=== PATIENT | male | born 1975 | race Caucasian/White ===

== ENCOUNTER 2024-01-04 18:22 | Inpatient (IN) | payer MEDICARE, SELFPAY ==
--- NOTE | 2024-01-04 18:34 | ED.GENADULT ---
HPI - General Adult General Chief complaint: ETOH/Substance Use Stated complaint: ETOH, seizure in parking lot? Time Seen by Provider: 01/04/24 18:33 History of Present Illness ED Provider: Nataliia CARTER narrative: The patient is a 48-year-old male with a history of alcoholism. He also has a history of long-term gout. Apparently the patient was feeling quite depressed because of a recent alcohol relapse and heavy use recently. He says that he drove himself to the hospital from a motel in [place] because he was having suicidal thoughts. He apparently told the nurse that he had a plan to slit his throat with a knife. The patient says that he normally lives in [place], [place]. He says that he has 3 young children. He says he has been working doing [employer] work in the [place] area recently, commuting from [place]. The patient says that he has had alcohol withdrawal seizures in the past but not recently. He has been in detox a few times. Related Data Home Medications ?Medication ?Instructions ?Recorded ?Confirmed allopurinol 300 mg tablet 300 mg PO DAILY 01/04/24 01/04/24 amlodipine 5 mg tablet 5 mg PO DAILY 01/04/24 01/04/24 folic acid 1 mg tablet 1 mg PO DAILY 01/04/24 01/04/24 melatonin 5 mg tablet 1 mg PO DAILY 01/04/24 01/04/24 metoprolol succinate 50 mg 50 mg PO DAILY 01/04/24 01/04/24 tablet,extended release 24 hr nicotine (polacrilex) 2 mg gum 2 mg PO Q2H PRN nicotine cravings 01/04/24 01/04/24 nifedipine 60 mg tablet,extended 60 mg PO DAILY 01/04/24 01/04/24 release 24 hr sertraline 100 mg tablet 100 mg PO DAILY 01/04/24 01/04/24 thiamine HCl (vitamin B1) 100 mg 100 mg PO DAILY 01/04/24 01/04/24 tablet Allergies Allergy/AdvReac Type Severity Reaction Status Date / Time No Known Allergies Allergy Verified 01/04/24 18:43 Review of Systems Review of Systems: Yes all other systems are reviewed and are negative [facility] Social History Social History Alcohol intake: current Alcohol intake frequency: 3 or more drinks per day Alcohol type: hard liquor Smoked in Last 30 Days: No Use of substances other than those prescribed or required for medical reasons: No Advance Directives: No Advance Directives Information Provided: No Physical Exam ED Vital Signs: Vital Signs - 24 hr 01/04/24 18:38 01/04/24 19:58 01/04/24 22:23 Temperature 97.9 F 98.3 F 98.3 F Pulse Rate 106 H 87 90 Respiratory Rate 18 19 17 Blood Pressure 144/88 H 144/78 H 134/80 Pulse Oximetry 98 92 94 Oxygen Delivery Method Room Air Room Air Room Air 01/04/24 23:15 Temperature 98.7 F Pulse Rate 101 H Respiratory Rate 18 Blood Pressure 159/87 H Pulse Oximetry 94 Oxygen Delivery Method Room Air BMI result Body Mass Index 28.7 Const Other: The patient is awake and alert. He has mildly slurred speech consistent with alcohol intoxication. He does not seem in acute distress otherwise. HENMT Other: Face is symmetrical. Mucous membranes moist. Eyes Other: Pupils are round equal, conjunctivae clear Neck Other: Moving his neck easily Resp Effort & Inspection: normal respiratory effort Auscultation: clear to auscultation bilaterally Cardio Rate: regular rate and tachycardic Rhythm: regular rhythm Heart sounds: S1 normal heart sound present and S2 normal heart sound present GI Other: Abdomen is soft and nontender Skin Other: Skin is dry and unremarkable Neuro Other: The patient is awake and alert. He is reasonably well oriented. He has mild slurred speech consistent with alcohol intoxication. No facial asymmetry. Eye movements are intact. Symmetrical tone. No focal findings. Extrem Other: The patient has several nodules on his hands and feet consistent with chronic manifestations of gout Medications Administered Generic Name Dose Route Start Last Admin Trade Name Freq PRN Reason Stop Dose Admin Phenobarbital Sodium 219 mg 01/04/24 22:30 01/04/24 22:21 Phenobarbital Sodium 130 Mg/Ml Vial Im Q3hx2 IM 01/05/24 01:31 219 mg Q3H ALBINA Administration Protocol Discontinued Medications Generic Name Dose Route Start Last Admin Trade Name Freq PRN Reason Stop Dose Admin Sodium Chloride 1,000 mls @ 999 mls/hr 01/04/24 19:00 01/04/24 20:52 Ns IV 01/04/24 20:00 Infused .Q1H1M ALBINA Infusion Phenobarbital 240 mg 01/04/24 23:51 01/04/24 23:58 Phenobarbital 30 Mg Tablet PO 01/04/24 23:52 240 mg ONCE ONE Administration Phenobarbital Sodium 292 mg 01/04/24 19:30 01/04/24 19:51 Phenobarbital Sodium 130 Mg/Ml Im Once IM 01/04/24 19:31 292 mg ONCE ONE Administration Protocol Medical Decision Making Medical Decision Making [facility] Narrative: The patient is a 48-year-old male who was an alcoholic. He has relapsed on alcohol and is depressed about having relapsed. He presents with what seems to be alcohol intoxication and suicidal thoughts. The patient's ethanol level was 385. The patient was given IV fluids. The patient was given 2 doses of IM phenobarbital. He seems stable. He will be moved into the Psychiatric pod awaiting a care team consult. The patient is medically clear for evaluation and disposition by the care team although he may require additional medications if he develops any significant alcohol withdrawal symptoms. Lab Data 01/04/24 19:49 01/04/24 19:49 Labs: Lab Results 01/04/24 01/04/24 Range/Units 19:49 20:08 WBC 7.7 (4.8-10.8) X10*3/uL RBC 4.94 (4.60-5.80) X10*6/uL Hgb 15.1 (14.0-18.0) g/dl Hct 43.6 (42.0-52.0) % MCV 88.3 (80.0-98.0) fL MCH 30.6 (27.0-33.0) pg MCHC 34.6 (31.0-36.0) g/dl RDW 13.8 (11.0-16.0) % Plt Count 383 (160-400) X10*3/uL MPV 9.5 (9.4-12.4) fL Immature Gran % (Auto) 0.4 (0.0-0.4) % Neut % (Auto) 72.4 (45-73) % Lymph % (Auto) 22.5 (20-40) % [place] % (Auto) 4.3 (2-11) % Eos % (Auto) 0.0 (0-4) % Baso % (Auto) 0.4 (0-2) % Lymph # (Auto) 1.7 (1.2-4.9) X10*3/uL [place] # (Auto) 0.3 (0.1-1.2) X10*3/uL Eos # (Auto) 0.0 (0.0-0.4) X10*3/uL Baso # (Auto) 0.0 (0.0-0.2) X10*3/uL Abs Immat Gran (auto) 0.03 (0.00-0.03) X10*3/uL Absolute Neuts (auto) 5.6 (2.0-8.3) x10*3/uL Absolute Nucleated RBC 0.000 (0.0-0.012) X10*3/uL Nucleated RBC % (auto) 0.0 (0.0-0.2) /100WBC PT 12.6 (11.1-13.3) SEC INR 1.0 (0.9-1.1) Sodium 146 H (135-145) mmol/L Potassium 4.0 (3.3-5.1) mmol/L Chloride 106 (96-108) mmol/L Carbon Dioxide 24 (22-29) mmol/L Anion Gap 20 (12-20) BUN 20 H (9-16) mg/dL Creatinine 1.27 (0.5-1.4) mg/dL Estim Creat Clear Calc 78.8 Estimated GFR > 60 Random Glucose 119 H (60-115) mg/dL Calcium 9.3 (8.4-10.2) mg/dL Magnesium 2.0 (1.6-2.6) mg/dL Total Bilirubin 0.5 (0.0-1.0) mg/dL Direct Bilirubin 0.2 (0.0-0.5) mg/dL AST 31 (5-37) U/L ALT 21 (0-40) U/L Alkaline Phosphatase 150 H (39-117) U/L Total Protein 7.8 (6.5-8.0) g/dL Albumin 4.7 (3.5-5.0) g/dL Urine Color Yellow Urine Appearance Clear Urine pH 6.5 (5.0-9.0) Ur Specific [place] 1.015 (1.005-1.025) Urine Protein 30 (1+) H (Neg-Trace) mg/dL Urine Glucose (UA) Negative (Negative) mg/dL Urine Ketones Negative (Negative) mg/dL Urine Blood Negative (Negative) Urine Nitrite Negative (Negative) Ur Leukocyte Esterase Negative (Negative) Urine RBC 0-2 (0-2) /HPF Urine WBC 0-5 (0-5) /HPF Ur Squamous Epith Cells 0-2 (0-2) /HPF Urine Bacteria None Seen (None Seen) Hyaline Casts 0-2 (0-2) /LPF Urine Opiates Screen Not Detected (Not Detect) Ur Buprenorphine Scrn Not Detected (Not Detect) ng/mL Ur Oxycodone Screen Not Detected (Not Detect) ng/mL Urine Methadone Screen Not Detected (Not Detect) ng/mL Urine Fentanyl Screen Not Detected (Not Detect) Ur Barbiturates Screen POSITIVE H (Not Detect) Ur Phencyclidine Scrn Not Detected (Not Detect) Ur Amphetamines Screen Not Detected (Not Detect) U Benzodiazepines Scrn Not Detected (Not Detect) Urine Cocaine Screen Not Detected (Not Detect) U Marijuana (THC) Screen Not Detected (Not Detect) Ethyl Alcohol 385 H* mg/dL Discharge Plan Discharge Clinical Impression: Depression with suicidal ideation, Alcoholic intoxication, Alcoholism Patient Disposition: Still a Patient Prescriptions: No Action nicotine (polacrilex) 2 mg gum 2 mg PO Q2H PRN (Reason: nicotine cravings) metoprolol succinate 50 mg tablet extended release 24 hr 50 mg PO DAILY sertraline 100 mg tablet 100 mg PO DAILY thiamine HCl (vitamin B1) 100 mg tablet 100 mg PO DAILY amlodipine 5 mg tablet 5 mg PO DAILY nifedipine 60 mg tablet extended release 24hr 60 mg PO DAILY folic acid 1 mg tablet 1 mg PO DAILY allopurinol 300 mg tablet 300 mg PO DAILY melatonin 5 mg tablet 1 mg PO DAILY Print Language: Panamanian
[2024-01-04 18:38] VITALS: BP 144/88; PULSE 106; RESP 18; TEMP 36.6; O2SAT 98; BMI 28.7
--- NOTE | 2024-01-04 18:40 | MHC.EDTECH ---
Patient was changed over due to intoxication of alcohol with nurse and security. Patients belongings are in [address].
--- NOTE | 2024-01-04 18:43 | PC.NURSE ---
patient presentred with hospital security after being found in D lot by [employer] after a call that someone was in their car having a seizure. patient found to have open bottle of smirnoff vodka with him. patient states hes been sober x3mo with the help of AA and sober living. patient states he is not interested right now in detox services because things arent that bad . patient endorses driving to the parking lot after drinking, but denies having a seizure. patient states he was sitting in his work van knowing he couldnt go back to sober living home, or home to his and kids and stated that he was thinking of killing himself and cutting his throat with the knife he has in his van. patient is calm and cooperative, pleasant., was changed over into hospital attire.
--- NOTE | 2024-01-04 18:51 | ECG_ITS ---
Test Reason : substance abuse Blood Pressure : / mmHG Vent. Rate : 088 BPM Atrial Rate : 088 BPM P-R Int : 176 ms QRS Dur : 096 ms QT Int : 370 ms P-R-T Axes : 042 -33 017 degrees QTc Int : 447 ms Normal sinus rhythm Left axis deviation Abnormal ECG No previous ECGs available Referred By: Richmond William Electronically Signed By:ESTEABN CARRANZA
--- NOTE | 2024-01-04 19:23 | MHC.EDTECH ---
EKG order was putted in while receiving an ambulance needing an EKG also.
[2024-01-04] MEDS: PHENobarbitaL sodium 130 MG/ML IM ONCE 292 MG IM (19:51)
[2024-01-04] MEDS: 0.9 % Sodium Chloride 1,000 ML 999 ML IV (19:51)
[2024-01-04 19:53] LABS: MANUAL DIFF FLAG NO
[2024-01-04 19:54] LABS: Basophils Percent Auto 0.4 % (0-2); Hematocrit 43.6 % (42.0-52.0); Hemoglobin 15.1 g/dl (14.0-18.0); Imm Gran Abs Auto 0.03 X10*3/uL (0.00-0.03); Imm Gran Pct Auto 0.4 % (0.0-0.4); Lymphocytes Absolute Auto 1.7 X10*3/uL (1.2-4.9); Lymphocytes Percent Auto 22.5 % (20-40); Mean Corpuscular HGB Conc 34.6 g/dl (31.0-36.0); Mean Corpuscular Hemoglobin 30.6 pg (27.0-33.0); Mean Corpuscular Volume 88.3 fL (80.0-98.0); Mean Platelet Volume 9.5 fL (9.4-12.4); Monocytes Absolute Auto 0.3 X10*3/uL (0.1-1.2); Monocytes Percent Auto 4.3 % (2-11); Neutrophils Absolute Auto 5.6 x10*3/uL (2.0-8.3); Neutrophils Percent Auto 72.4 % (45-73); Platelet Count 383 X10*3/uL (160-400); Red Blood Count 4.94 X10*6/uL (4.60-5.80); Red Cell Distribution Width 13.8 % (11.0-16.0); White Blood Count 7.7 X10*3/uL (4.8-10.8)
[2024-01-04 19:58] VITALS: BP 144/78; PULSE 87; RESP 19; TEMP 36.8; O2SAT 92
[2024-01-04 20:01] LABS: Prothrombin Time 12.6 SEC (11.1-13.3)
[2024-01-04 20:05] LABS: Ethanol 385 mg/dL
[2024-01-04 20:07] LABS: Alanine Aminotransferase 21 U/L (0-40); Albumin Level 4.7 g/dL (3.5-5.0); Alkaline Phosphatase 150 U/L (39-117); Anion Gap 20 (12-20); Aspartate Amino Transferase 31 U/L (5-37); Bilirubin Direct 0.2 mg/dL (0.0-0.5); Bilirubin Total 0.5 mg/dL (0.0-1.0); Blood Urea Nitrogen 20 mg/dL (9-16); Calcium 9.3 mg/dL (8.4-10.2); Carbon Dioxide 24 mmol/L (22-29); Chloride 106 mmol/L (96-108); Creatinine Clr Calc Pharmacy 78.8; Estimated Glomerular Filt Rate > 60; Glucose Random 119 mg/dL (60-115); Sodium 146 mmol/L (135-145); Total Protein 7.8 g/dL (6.5-8.0)
[2024-01-04 20:15] LABS: Appearance Urine Clear; Color Urine Yellow; Glucose Urine UA Negative (Negative); Leukocyte Esterase Urine Negative (Negative); Nitrite Urine Negative (Negative); PH 6.5 (5.0-9.0); Specific Gravity - Urine 1.015 (1.005-1.025); UMIC TRIGGER UACC YES; Urine Blood Negative (Negative); Urine Ketones Negative (Negative); Urine Protein 30 (1+) mg/dL (Neg-Trace)
[2024-01-04 20:20] LABS: Bacteria Urine None Seen (None Seen); Hyaline Casts Urine 0-2 /LPF (0-2); RBC Urine 0-2 /HPF (0-2); Squamous Epithelial Cell Urine 0-2 /HPF (0-2); WBC Urine 0-5 /HPF (0-5)
[2024-01-04 20:26] LABS: Amphetamine Screen Urine Not Detected (Not Detect); Barbiturates, Urine POSITIVE (Not Detect); Benzodiazepines Screen Urine Not Detected (Not Detect); Buprenorphine Scr Not Detected (Not Detect); Cannabinoid Screen Urine Not Detected (Not Detect); Cocaine Screen Urine Not Detected (Not Detect); Fentanyl, urine Not Detected (Not Detect); Methadone Screen, Urine Not Detected (Not Detect); Opiate Screen Urine Not Detected (Not Detect); Oxycodone Screen Urine Not Detected (Not Detect); Phencyclidine Screen Urine Not Detected (Not Detect)
[2024-01-04] MEDS: PHENobarbitaL sodium 130 MG/ML VIAL IM Q3Hx2 219 MG IM (22:21)
[2024-01-04 22:23] VITALS: BP 134/80; PULSE 90; RESP 17; TEMP 36.8; O2SAT 94
[2024-01-04 23:15] VITALS: BP 159/87; PULSE 101; RESP 18; TEMP 37.1; O2SAT 94
--- NOTE | 2024-01-04 23:38 | PC.NURSE ---
Pt reports I don't feel right. Pt is reporting increased headache and feeling nauseas. Pt exhibiting slight increased agitation, unable to sit still, and anxious. CIWA: 10. MLP made aware.
[2024-01-04] MEDS: PHENobarbitaL 30 MG TABLET 240 MG PO (23:58)
[2024-01-05] VITALS (7 sets, daily range): BP systolic 130–186; BP diastolic 80–102; PULSE 70–98; RESP 16–18; TEMP 36.5–37; O2SAT 95–99; BMI 29.4
[2024-01-05] MEDS: PHENobarbitaL sodium 130 MG/ML VIAL IM Q3Hx2 219 MG IM (01:35)
--- NOTE | 2024-01-05 01:46 | PC.NURSE ---
Pt aox4, resting at the bedside. No apparent distress noted. Medicated as per AUG. Reports decreased anxiety/agitation. Able to sit still. Monitoring is ongoing.
--- NOTE | 2024-01-05 07:01 | PC.NURSE ---
Assumed care of patient at 0645, patient appears to be resting on bed in BH 3. Patient verbalizes feeling like his withdrawal symptoms are worse and would like something to help with them. Patient is on phenobarb protocol with medication due at 0900. CIWA score of 12. Dr. Fowler aware
[2024-01-05] MEDS: chlordiazePOXIDE HCl 25 MG CAPSULE 50 MG PO ×4 (07:21→21:52)
[2024-01-05] MEDS: PHENobarbitaL 15 MG TABLET 45 MG PO ×2 (09:12→20:59)
--- NOTE | 2024-01-05 10:37 | PC.NURSE ---
Patient's symptoms seemed to have improved after Librium and Phenobarbital however about an hour after administration, patient began having symptoms again. Patient verbalizes continuing to feel nauseous with a headache. Current CIWA score of 9. Recovery team looped in as well as Dr. Fowler. Plan for PRN Librium to manage symptoms
--- NOTE | 2024-01-05 12:05 | PC.NURSE ---
patient approached nurses station stating that he is feeling worse, updated CIWA score of 14 which is a jump from his score at [address] Fowler aware of this CIWA score, plan for him to see patient and determine next steps
[2024-01-05] MEDS: chlordiazePOXIDE HCl 25 MG CAPSULE PO (12:24)
[2024-01-05] MEDS: Ondansetron ODT 4 MG TAB.RAPDIS TRANSLINGU (12:24)
[2024-01-05] MEDS: Ibuprofen 800 MG TABLET PO (12:24)
--- NOTE | 2024-01-05 15:54 | PC.NURSE ---
aware of elevated blood pressure and increasing CIWA score, no new orders at this time
[2024-01-05] MEDS: LORazepam 1 MG TABLET PO (16:01)
--- NOTE | 2024-01-05 16:04 | MHC.RECOVRN ---
Consulted with patient after referral was placed for detox. Patient states that he for 3 months had been living in a sober home in [facility] and 12 days ago relapsed and was kicked out . He acknowledged he had the opportunity to go back in 3 days, but was unable to abstain from alcohol and did not go back. Patient rented a hotel for the past 3 days, he states for work, and called an ambulance last night for SI which he now denies. Patient endorses A few pints of fire ball daily , and when asked what he is looking for states I guess Detox . Patient presents with flat affect, will not make eye contact with me. When asked what his goal is he says get back into a sober living home, I have no where to live . Spoke with care team, plan is to reach out to facilities who take his insurance, information was sent to [facility], waiting to hear back. [facility] was contacted and full for the day, but endorsed possibility for openings tomorrow. Plan is for medical team to monitor CIWA, and we will follow up with detox facilities for placement. Isis Santos APRN aware and consulted with.
--- NOTE | 2024-01-05 17:17 | PHA.MEDREC ---
Pharmacy Consult ? Medication Reconciliation Pharmacy has completed the medication reconciliation. Pharmacy reviewed med rec.
--- NOTE | 2024-01-05 17:26 | PM.IMHP ---
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 [employer], on 01/02 , he felt depressed because of recent alcohol relapse and heavy alcohol use therefore he came to [facility] with suicidal thoughts, he apparently told the nurse that he had a plan to slit his throat with a knife patient was kept in [facility] ED under section 12, until he was seen by care team, today patient was seen by crisis and felt patient is no longer suicidal, and cleared him, patient was started on phenobarb protocol for alcohol withdrawal on 01/03, today he noted to have a CIWA of 13, therefore patient is being admitted to [facility] for alcohol withdrawal with history of alcohol withdrawal seizures. Patient is complaining of nausea and headache, denies vomiting, abdominal pain, no tachycardia, no tremors, no fogginess, he has been started on Librium as needed by ED provider. Review of Systems Review of Systems: General no headache, no dizziness no fever chills. CVS no chest pain, no palpitation. Respiratory no cough, no sob Gastrointestinal nausea, no vomiting, no abdominal pain, no diarrhea no urgency no frequency Musculoskeletal no flare of gout All other system reviewed and are negative. [facility] Pertinent family history: Mother is cancer survivor history of esophageal cancer Father due to heart failure at age 67 Social History Alcohol intake: current Alcohol intake frequency: 3 or more drinks per day Alcohol type: hard liquor Patient Tobacco Use Status: Current someday Tobacco user Meds Allergies Allergy/AdvReac Type Severity Reaction Status Date / Time No Known Allergies Allergy Verified 01/04/24 18:43 Active Medications: Current Medications Acetaminophen (Acetaminophen 325 Mg Tablet) 650 mg PO Q6H PRN PRN Reason: Pain, Mild (Pain Scale 1-3), fever or headache Allopurinol (Allopurinol 300 Mg Tablet) 300 mg PO DAILY [facility] Amlodipine Besylate (Amlodipine Besylate 5 Mg Tablet) 5 mg PO DAILY [facility]; Protocol Benzonatate (Benzonatate 100 Mg Capsule) 100 mg PO TID PRN PRN Reason: Cough Calcium Carbonate (Calcium Carbonate 750 Mg Tab.Chew) 750 mg PO Q4H PRN PRN Reason: Heartburn Chlordiazepoxide HCl (Chlordiazepoxide Hcl 25 Mg Capsule) 50 mg PO QID PRN PRN Reason: anxiety Last Admin: 01/05/24 11:05 Dose: 50 mg Folic Acid (Folic Acid 1 Mg Tablet) 1 mg PO DAILY [facility] Magnesium Hydroxide (Milk Of Magnesia 30 Ml Oral.Susp) 30 ml PO DAILY PRN PRN Reason: Constipation Melatonin (Melatonin 3 Mg Tablet) 6 mg PO BEDTIME PRN PRN Reason: Insomnia Metoprolol Succinate (Metoprolol Succinate Er 50 Mg Tab.Er.24h) 50 mg PO DAILY [facility]; Protocol Omeprazole (Omeprazole 20 Mg Capsule.Dr) 20 mg PO DAILY@0630 [facility] Ondansetron HCl (Ondansetron Hcl 4 Mg/2 Ml Vial) 4 mg IVPUSH Q8H PRN PRN Reason: Nausea and Vomiting Pharmacy Consult (Consult Rx Etoh Phenob Im/Po) 1 each MISCELLANE ONCE PRN; Protocol PRN Reason: Consult order Phenobarbital (Phenobarbital 15 Mg Tablet) 45 mg PO BID [facility]; Protocol Stop: 01/06/24 21:01 Last Admin: 01/05/24 09:12 Dose: 45 mg Phenobarbital (Phenobarbital 30 Mg Tablet) 30 mg PO BID [facility]; Protocol Stop: 01/08/24 21:01 Phenobarbital (Phenobarbital 30 Mg Tablet) 30 mg PO DAILY [facility]; Protocol Stop: 01/10/24 09:01 Sertraline HCl (Sertraline Hcl 100 Mg Tablet) 100 mg PO DAILY [facility] Sodium Chloride (0.9 % Sodium Chloride Flush 3 Ml Syringe) 3 ml IVFLUSH QSHIFT [facility] Thiamine HCl (Thiamine Hcl 100 Mg Tablet) 100 mg PO DAILY [facility] Home Medications ?Medication ?Instructions ?Recorded ?Confirmed ?Last Taken ?Type allopurinol 300 mg tablet 300 mg PO DAILY 01/04/24 01/04/24 Unknown History amlodipine 5 mg tablet 5 mg PO DAILY 01/04/24 01/04/24 Unknown History folic acid 1 mg tablet 1 mg PO DAILY 01/04/24 01/04/24 Unknown History melatonin 5 mg tablet 1 mg PO DAILY 01/04/24 01/04/24 Unknown History metoprolol succinate 50 mg 50 mg PO DAILY 01/04/24 01/04/24 Unknown History tablet,extended release 24 hr nicotine (polacrilex) 2 mg gum 2 mg PO Q2H PRN nicotine cravings 01/04/24 01/04/24 Unknown History nifedipine 60 mg tablet,extended 60 mg PO DAILY 01/04/24 01/04/24 Unknown History release 24 hr sertraline 100 mg tablet 100 mg PO DAILY 01/04/24 01/04/24 Unknown History thiamine HCl (vitamin B1) 100 mg 100 mg PO DAILY 01/04/24 01/04/24 Unknown History tablet Physical Exam Vital Signs and Narrative: Vital Signs: Last Vital Signs Temp 98.5 F 01/05/24 15:52 Pulse 98 01/05/24 15:52 Resp 16 01/05/24 15:52 BP 186/102 H 01/05/24 15:52 Pulse Ox 98 01/05/24 15:52 O2 Del Method Room Air 01/05/24 15:52 BMI result Body Mass Index 28.7 Const: Other: General awake alert x3, in no acute distress. Anicteric sclera Neck no JVD. CVS regular rate rhythm, Respiratory lungs clear to auscultation, no respiratory distress, no wheeze, no rhonchi. Gastrointestinal abdomen soft, non tender, bowel sounds audible,no guarding , no rigidity. Extremities no edema. Neuro non focal , speech clear, no tremors. Skin no rash Psych appropriate affect Left hand deformity due to gout Results Labs 01/04/24 19:49 01/04/24 19:49 Labs: Laboratory Results - last 24 hr 01/04/24 01/04/24 19:49 20:08 MCV 88.3 MCH 30.6 MCHC 34.6 RDW 13.8 Plt Count 383 MPV 9.5 Immature Gran % (Auto) 0.4 Neut % (Auto) 72.4 Lymph % (Auto) 22.5 [place] % (Auto) 4.3 Eos % (Auto) 0.0 Baso % (Auto) 0.4 Lymph # (Auto) 1.7 [place] # (Auto) 0.3 Eos # (Auto) 0.0 Baso # (Auto) 0.0 Abs Immat Gran (auto) 0.03 Absolute Neuts (auto) 5.6 Absolute Nucleated RBC 0.000 Nucleated RBC % (auto) 0.0 PT 12.6 INR 1.0 Anion Gap 20 Estim Creat Clear Calc 78.8 Estimated GFR > 60 Random Glucose 119 H Calcium 9.3 Magnesium 2.0 Total Bilirubin 0.5 Direct Bilirubin 0.2 AST 31 ALT 21 Alkaline Phosphatase 150 H Total Protein 7.8 Albumin 4.7 Urine Color Yellow Urine Appearance Clear Urine pH 6.5 Ur Specific [place] 1.015 Urine Protein 30 (1+) H Urine Glucose (UA) Negative Urine Ketones Negative Urine Blood Negative Urine Nitrite Negative Ur Leukocyte Esterase Negative Urine RBC 0-2 Urine WBC 0-5 Ur Squamous Epith Cells 0-2 Urine Bacteria None Seen Hyaline Casts 0-2 Urine Opiates Screen Not Detected Ur Buprenorphine Scrn Not Detected Ur Oxycodone Screen Not Detected Urine Methadone Screen Not Detected Urine Fentanyl Screen Not Detected Ur Barbiturates Screen POSITIVE H Ur Phencyclidine Scrn Not Detected Ur Amphetamines Screen Not Detected U Benzodiazepines Scrn Not Detected Urine Cocaine Screen Not Detected U Marijuana (THC) Screen Not Detected Ethyl Alcohol 385 H* Assessment and Plan (1) Alcoholism: Status: Acute (2) Hypertension: Qualifiers: Hypertension type: unspecified secondary hypertension Qualified Code(s): I15.9 - Secondary hypertension, unspecified Status: Acute (3) Gout: Qualifiers: Gout site: hand Status: Acute (4) Alcohol withdrawal: Status: Acute Plan 48-year-old gentleman with past medical history of hypertension, alcohol use disorder, gout, who recently relapsed on alcohol after being sober home for 3 months in [facility] , have been drinking heavily in last 1-2 weeks Presented to ED with depression and suicidal ideation patient cleared by care team and now being admitted to [facility] due to alcohol with high risk for seizures.. Alcohol use disorder/withdrawal with prior history of withdrawal seizure Admit to telemetry/continue phenobarb protocol/as needed Librium/ Folic acid, thiamine, PPI for GI prophylaxis Being follow-up by Addiction Team ,information was sent to [facility], waiting to hear back. [facility] was contacted and full for the day, but endorsed possibility for openings tomorrow. Care team will follow-up with detox facilities for placement History of gout, no acute flare resume allopurinol 300 mg daily Hypertension with elevated blood pressures, will resume home medications metoprolol XL 50 mg daily and amlodipine 5 mg daily, also on nifedipine XL 60 mg , held at this time will monitor blood pressure and Adjust medications. Depression/suicidal ideation cleared by care team resume Zoloft 100 mg daily. Full code Early ambulation In my clinical judgment patient need two night inpatient hospitalization for alcohol withdrawal requiring phenobarb protocol and close monitoring for withdrawal seizures, and close follow-up with Addiction Team Quality Stroke Does the patient have a stroke diagnosis?: No VTE Prior VTE?: No VTE Risk Level:: Medical - low VTE Device Contraindication: Treatment Not Indicated VTE Drug Contraindication: Treatment Not Indicated
[2024-01-05] MEDS: Metoprolol Succinate ER 50 MG TAB.ER.24H PO (17:28)
[2024-01-05] MEDS: amLODIPine Besylate 5 MG TABLET PO (17:28)
[2024-01-05] MEDS: Folic Acid 1 MG TABLET PO (17:28)
[2024-01-05] MEDS: allopurinoL 300 MG TABLET PO (17:28)
[2024-01-05] MEDS: Sertraline HCL 100 MG TABLET PO (17:29)
--- NOTE | 2024-01-05 18:14 | PC.NURSE ---
Patient appears to be in no apparent distress after recent administration of PRN Librium. Offers complain of mild headache but overall improved alcohol withdrawal symptoms. Patient continues to remain on WA protocol, plan for [facility] admission, chargemaster specialist aware so patient can have a tele monitored bed
--- NOTE | 2024-01-05 19:12 | PC.NURSE ---
this rn assumed care of pt, pt resting in stretcher, no acute distress noted. pt normal sinus on tele 79-80bpm.
[2024-01-05] MEDS: Acetaminophen 325 MG TABLET 650 MG PO (20:59)
[2024-01-06] VITALS (7 sets, daily range): BP systolic 124–160; BP diastolic 68–91; PULSE 54–76; RESP 18–20; TEMP 36.2–36.9; O2SAT 96–98
[2024-01-06] MEDS: 0.9 % Sodium Chloride Flush 3 ML SYRINGE IVFLUSH ×3 (00:19→18:10)
[2024-01-06] MEDS: Acetaminophen 325 MG TABLET 650 MG PO ×2 (03:06→20:49)
[2024-01-06] MEDS: Melatonin 3 MG TABLET 6 MG PO (03:06)
[2024-01-06] MEDS: chlordiazePOXIDE HCl 25 MG CAPSULE 50 MG PO ×2 (04:11→12:19)
[2024-01-06] MEDS: Omeprazole 20 MG CAPSULE.DR PO (05:36)
[2024-01-06] MEDS: allopurinoL 300 MG TABLET PO (08:48)
[2024-01-06] MEDS: amLODIPine Besylate 5 MG TABLET PO (08:48)
[2024-01-06] MEDS: Folic Acid 1 MG TABLET PO (08:48)
[2024-01-06] MEDS: Sertraline HCL 100 MG TABLET PO (08:48)
[2024-01-06] MEDS: Thiamine HCL 100 MG TABLET PO (08:48)
[2024-01-06] MEDS: PHENobarbitaL 15 MG TABLET 45 MG PO ×2 (08:49→20:32)
[2024-01-06] MEDS: Metoprolol Succinate ER 50 MG TAB.ER.24H PO (08:49)
--- NOTE | 2024-01-06 10:51 | HO.PM.IMPN ---
Subjective Subjective Date of Service: 01/06/24 Interval History: Being followed for alcohol withdrawal. CIWA 6 this morning, patient feels anxious and shaky, tolerating diet ,no nausea, no vomiting, no hallucination, no acute events overnight. Review of Systems All other systems are reviewed and are negative. Physical Exam Vital Signs: Vital Signs: Last Vital Signs Temp 97.7 F 01/06/24 07:41 Pulse 59 01/06/24 07:41 Resp 20 01/06/24 07:41 BP 149/84 H 01/06/24 07:41 Pulse Ox 98 01/06/24 07:41 O2 Del Method Room Air 01/06/24 07:41 BMI result Body Mass Index 29.4 Const: Other: General awake alert x3, in no acute distress. Anicteric sclera Neck no JVD. CVS regular rate rhythm, Respiratory lungs clear to auscultation, no respiratory distress, no wheeze, no rhonchi. Gastrointestinal abdomen soft, non tender, bowel sounds audible,no guarding , no rigidity. Extremities no edema. Neuro non focal , speech clear, no tremors. Skin no rash Psych appropriate affect Left hand deformity due to gout Objective Data Active Medications Acetaminophen (Acetaminophen 325 Mg Tablet) 650 mg PO Q6H PRN PRN Reason: Pain, Mild (Pain Scale 1-3), fever or headache Last Admin: 01/06/24 03:06 Dose: 650 mg Documented By: ALLY Allopurinol (Allopurinol 300 Mg Tablet) 300 mg PO DAILY [facility] Last Admin: 01/06/24 08:48 Dose: 300 mg Documented By: FRANK Amlodipine Besylate (Amlodipine Besylate 5 Mg Tablet) 5 mg PO DAILY [facility]; Protocol Last Admin: 01/06/24 08:48 Dose: 5 mg Documented By: FRANK Benzonatate (Benzonatate 100 Mg Capsule) 100 mg PO TID PRN PRN Reason: Cough Calcium Carbonate (Calcium Carbonate 750 Mg Tab.Chew) 750 mg PO Q4H PRN PRN Reason: Heartburn Chlordiazepoxide HCl (Chlordiazepoxide Hcl 25 Mg Capsule) 50 mg PO QID PRN PRN Reason: anxiety Last Admin: 01/06/24 04:11 Dose: 50 mg Documented By: ALLY Folic Acid (Folic Acid 1 Mg Tablet) 1 mg PO DAILY [facility] Last Admin: 01/06/24 08:48 Dose: 1 mg Documented By: FRANK Magnesium Hydroxide (Milk Of Magnesia 30 Ml Oral.Susp) 30 ml PO DAILY PRN PRN Reason: Constipation Melatonin (Melatonin 3 Mg Tablet) 6 mg PO BEDTIME PRN PRN Reason: Insomnia Last Admin: 01/06/24 03:06 Dose: 6 mg Documented By: ALLY Metoprolol Succinate (Metoprolol Succinate Er 50 Mg Tab.Er.24h) 50 mg PO DAILY [facility]; Protocol Last Admin: 01/06/24 08:49 Dose: 50 mg Documented By: FRANK Nicotine Polacrilex (Nicotine Polacrilex 2 Mg Gum) 2 mg BUCCAL Q2H PRN PRN Reason: Nicotine Cravings Omeprazole (Omeprazole 20 Mg Capsule.Dr) 20 mg PO DAILY@0630 [facility] Last Admin: 01/06/24 05:36 Dose: 20 mg Documented By: ALLY Ondansetron HCl (Ondansetron Hcl 4 Mg/2 Ml Vial) 4 mg IVPUSH Q8H PRN PRN Reason: Nausea and Vomiting Pharmacy Consult (Consult Rx Etoh Phenob Im/Po) 1 each MISCELLANE ONCE PRN; Protocol PRN Reason: Consult order Phenobarbital (Phenobarbital 15 Mg Tablet) 45 mg PO BID [facility]; Protocol Stop: 01/06/24 21:01 Last Admin: 01/06/24 08:49 Dose: 45 mg Documented By: FRANK Phenobarbital (Phenobarbital 30 Mg Tablet) 30 mg PO BID [facility]; Protocol Stop: 01/08/24 21:01 Phenobarbital (Phenobarbital 30 Mg Tablet) 30 mg PO DAILY [facility]; Protocol Stop: 01/10/24 09:01 Sertraline HCl (Sertraline Hcl 100 Mg Tablet) 100 mg PO DAILY [facility] Last Admin: 01/06/24 08:48 Dose: 100 mg Documented By: FRANK Sodium Chloride (0.9 % Sodium Chloride Flush 3 Ml Syringe) [address] [facility] Last Admin: 01/06/24 08:49 Dose: 3 ml Documented By: FRANK Thiamine HCl (Thiamine Hcl 100 Mg Tablet) 100 mg PO DAILY [facility] Last Admin: 01/06/24 08:48 Dose: 100 mg Documented By: FRANK Labs 01/04/24 19:49 01/04/24 19:49 Assessment and Plan (1) Alcohol withdrawal: Status: Acute (2) Gout: Status: Acute (3) Hypertension: Status: Acute (4) Alcoholism: Status: Acute (5) Depression with suicidal ideation: Status: Acute Plan 48-year-old gentleman with past medical history of hypertension, alcohol use disorder, gout, who recently relapsed on alcohol after being sober home for 3 months in [facility] , have been drinking heavily in last 1-2 weeks Presented to ED with depression and suicidal ideation patient cleared by care team and now being admitted to [facility] due to alcohol with high risk for seizures.. Alcohol use disorder/withdrawal with prior history of withdrawal seizure continue phenobarb protocol/as needed Librium Folic acid, thiamine, PPI for GI prophylaxis, seizure precautions Seen by Addiction Team , patient declined to go to rehab from here wants to follow-up on his own outpatient, Addiction Team provided outpatient resources. History of gout, no acute flare on allopurinol 300 mg daily Acute mild Hypernatremia sodium 146 push po fluids. Hypertension with elevated blood pressures, will resume home medications metoprolol XL 50 mg daily and nifedipine XL 60 mg , will hold Norvasc (? Why on 2 calcium channel blockers) Follow BP Depression/suicidal ideation cleared by care team, resume Zoloft 100 mg daily. Full code Early ambulation In my clinical judgment patient need continued inpatient hospitalization for alcohol withdrawal requiring phenobarb protocol and close monitoring for withdrawal seizures, and close follow-up with Addiction Team Quality Stroke Does the patient have a stroke diagnosis?: No VTE Prior VTE?: No VTE Risk Level:: Medical - low VTE Device Contraindication: Treatment Not Indicated VTE Drug Contraindication: Treatment Not Indicated
--- NOTE | 2024-01-06 11:23 | MHC.RECOVRN ---
Met with pt in 468 to follow up after admission to hospital for alcohol withdrawal, HTN, and gout. Pt laying in bed, awake, alert, engages in conversation. Pt reports he had been drinking 3 pints liquor daily x 10-12 days, prior to that pt reports he was drinking less. Educated pt on ATS level of care and informed pt he will be completing the medical detox while at [facility] [place]. Pt is interested in a sober living facility, educated pt on process and that he would need to go to [facility] prior to that level of care. Informed pt [facility] referrals could be placed, pt declined and reports he would like to follow up outpatient. Discussed recovery resources and supports as well as provided pt written information. Pt provided with t/w contact information if questions or concerns arise. Plan for pt to follow up with resources upon dc from [facility] [place].
--- NOTE | 2024-01-06 12:17 | MHC.CM.PN ---
IMM 01/05. Pt self-care, he reports he was living in a sober house, but is now homeless. Pt would like assistance with transport/homeless nursing home at discharge. Patient resource booklet given to pt. HCP declined at this time. Pt unsure of his PCP.
[2024-01-06] MEDS: hydrOXYzine HCL 25 MG TABLET PO (18:09)
[2024-01-07] VITALS (7 sets, daily range): BP systolic 111–160; BP diastolic 61–86; PULSE 63–114; RESP 16–20; TEMP 36.2–37; O2SAT 93–97
--- NOTE | 2024-01-07 | ECG_ITS ---
Test Reason : vent tachycardia Blood Pressure : / mmHG Vent. Rate : 070 BPM Atrial Rate : 070 BPM P-R Int : 178 ms QRS Dur : 096 ms QT Int : 402 ms P-R-T Axes : 057 -30 -06 degrees QTc Int : 434 ms Normal sinus rhythm Left axis deviation Abnormal ECG When compared with ECG of 04-JAN-2024 19:23, No significant change was found Referred By: Efrain Hernandez Electronically Signed By:ESTEBAN CARRANZA
[2024-01-07] MEDS: 0.9 % Sodium Chloride Flush 3 ML SYRINGE IVFLUSH ×4 (04:58→22:32)
[2024-01-07] MEDS: Omeprazole 20 MG CAPSULE.DR PO (04:59)
[2024-01-07] MEDS: chlordiazePOXIDE HCl 25 MG CAPSULE 50 MG PO ×3 (04:59→18:16)
[2024-01-07 06:43] LABS: Anion Gap 16 (12-20); Blood Urea Nitrogen 18 mg/dL (9-16); Carbon Dioxide 22 mmol/L (22-29); Chloride 106 mmol/L (96-108); Creatinine Clr Calc Pharmacy 102.2; Estimated Glomerular Filt Rate > 60; Glucose Random 100 mg/dL (60-115); Potassium 3.5 mmol/L (3.3-5.1); Sodium 140 mmol/L (135-145)
--- NOTE | 2024-01-07 07:00 | CA_ITS ---
Transthoracic Echocardiogram Patient (Last, First, Middle): Montez Cadena N Gender: Male Date of : 1975 Age: 48 Procedure Date: 01/07/2024 Procedure Type: Transthoracic Echocardiogram Location: [facility] [place] Height: 177.8 cm Weight: 92.53 kg BSA: 2.10 m2 Heart Rate: bpm BP: 158 / 86 mmHg Class A Lineman: Referring MD: Efrain Hernandez MD Symptoms: ventricular tachycardia Study Quality: Adequate w Contrast ECG Rhythm: Sinus Conclusions: - The left ventricular systolic function is mild to moderately decreased. The calculated ejection fraction is 40% by biplane method. - The basal inferior and basal inferoseptal segments are akinetic. - No obvious valvular pathology seen on this study. Findings Procedure Information Contrast agent, definity, is being given per protocol without apparent complications. Left Ventricle Normal left ventricular cavity size. There is mildly increased left ventricular wall thickness. The left ventricular systolic function is mild to moderately decreased. The calculated ejection fraction is 40% by biplane method. Evidence suggests grade I (mild) diastolic dysfunction. Globally hypokinetic. Wall Motion Rest Echo Findings The basal inferior and basal inferoseptal segments are akinetic. Right Ventricle Normal right ventricular cavity size and systolic function. Atria Both atria are normal in size. Aortic Valve There is a normal trileaflet aortic valve. There is no aortic valve stenosis. There is no aortic valve regurgitation. Mitral Valve The mitral valve appears normal. There is no mitral valve regurgitation. There is no mitral valve stenosis. Pulmonic Valve The pulmonic valve is likely normal. Tricuspid Valve There is trace tricuspid valve regurgitation. There is no evidence of pulmonary hypertension. Great Vessels The asc aorta is normal in size. Venous The inferior vena cava is normal in size and collapses greater than 50% with inspiration. Pericardium/Pleural There is no evidence of pericardial effusion. Prior Study Comparison No prior study available for comparison. Recommendations, Care & Conclusions No obvious valvular pathology seen on this study. Measurements 2D Linear Measurements IVSd: 1.21 0.6-0.9/0.6-1.0 cm LVIDd: 5.18 3.9-5.3/4.2-5.9 cm LVIDd Index: 2.47 2.4-3.2/2.2-3.1 cm/m2 LVIDs: 3.45 2.0-3.6 cm LVPWd: 1.23 0.7-1.1 cm Ao Root: 3.60 2.1-3.5 cm LA Diam: 4.70 2.7-3.8/3.0-4.0 cm LAIDs Index: 2.24 1.5-2.3 cm/m2 LV Mass: 315.60 67-162/88-224 g LV Mass Index: 150.28 43-95/49-115 g/m2 LVOT Diam: 2.60 3.0+(-)1.3 cm 2D Systolic Function EF 4C: 46.00 >55% EF 2C: 39.40 >55% EF BiP: 40.00 >55% Mitral Valve MV Pk E: 0.44 MV PK A: 0.71 MV Decel Time: 149.00 E/A: 0.60 E'Lateral: 5.44 E'Medial: 3.81 E/E' Med: 11.40 E/E' Lat: 8.00 PHT: 44.00 MVA PHT: 5.00 Decel Baker: 2.91 Aortic Valve AoV Pk Mj: 1.05 AoV Pk Grad: 4.00 LVOT LVOT Pk Mj: 0.74 LVOT Mn Mj: 0.41 LVOT VTI: 0.11 LVOT Pk Grad: 2.00 LVOT Mn Grad: 1.00 LVOT Diam: 2.60 LVOT Area: 5.31 Diastolic Function MV Pk E: 0.44 MV Pk A: 0.71 E/A: 0.60 E'Medial: 3.81 E/E' Med: 11.40 E' Laterial: 5.44 E/E' Lat: 8.00 Right Ventricle TAPSE (mm): 17.00 TVS' Mj: 13.00 Tricuspid Valve TR Pk Mj: 1.36 TR Pk Grad: 7.00 RA Press: 3.00 RVSP: 10.00 Great Vessels Aorta Ao Root-2D: 3.60 2.0-3.7 cm Ao Asc: 3.20 2.1-3.4 cm Pulmonary Valve PV Pk Mj: 1.29 Peak PV Grad: 7.00 Updated in Other Vendor System with Status of Final Kwadwo Daly MD electronically signed on 01/08/2024 8:50:59 AM with status of Final
[2024-01-07] MEDS: NIFEdipine ER 60 MG TAB.ER.24 PO (09:38)
[2024-01-07] MEDS: Thiamine HCL 100 MG TABLET PO (09:38)
[2024-01-07] MEDS: Sertraline HCL 100 MG TABLET PO (09:38)
[2024-01-07] MEDS: PHENobarbitaL 30 MG TABLET PO ×2 (09:38→20:13)
[2024-01-07] MEDS: Metoprolol Succinate ER 50 MG TAB.ER.24H PO (09:38)
[2024-01-07] MEDS: Folic Acid 1 MG TABLET PO (09:39)
[2024-01-07] MEDS: allopurinoL 300 MG TABLET PO (09:39)
[2024-01-07] MEDS: Acetaminophen 325 MG TABLET 650 MG PO (09:46)
[2024-01-07] MEDS: hydrOXYzine HCL 25 MG TABLET PO ×3 (09:46→22:31)
--- NOTE | 2024-01-07 10:12 | P.PNIM_ITS ---
Subjective Subjective Date of Service: 01/07/24 Interval History: Being followed for alcohol withdrawal. No tremors this morning, no hallucination had 22 beat of V-tach, assymptomatic, norml K, checking mag Physical Exam 2 Vital Signs: Vital Signs: Last Vital Signs Temp 97.9 F 01/07/24 07:46 Pulse 66 01/07/24 07:46 Resp 18 01/07/24 07:46 BP 158/86 H 01/07/24 07:46 Pulse Ox 96 01/07/24 07:46 O2 Del Method Room Air 01/07/24 07:46 BMI result Body Mass Index 29.4 Const: Other: General awake alert x3, in no acute distress. Anicteric sclera Neck no JVD. CVS regular rate rhythm, Respiratory lungs clear to auscultation, no respiratory distress, no wheeze, no rhonchi. Gastrointestinal abdomen soft, non tender, bowel sounds audible,no guarding , no rigidity. Extremities no edema. Neuro non focal , speech clear, no tremors. Skin no rash Psych appropriate affect Left hand deformity due to gout Objective Data Active Medications Acetaminophen (Acetaminophen 325 Mg Tablet) 650 mg PO Q6H PRN PRN Reason: Pain, Mild (Pain Scale 1-3), fever or headache Last Admin: 01/07/24 09:46 Dose: 650 mg Documented By: ANDRÉS Allopurinol (Allopurinol 300 Mg Tablet) 300 mg PO DAILY [facility] Last Admin: 01/07/24 09:39 Dose: 300 mg Documented By: ANDRÉS Benzonatate (Benzonatate 100 Mg Capsule) 100 mg PO TID PRN PRN Reason: Cough Calcium Carbonate (Calcium Carbonate 750 Mg Tab.Chew) 750 mg PO Q4H PRN PRN Reason: Heartburn Chlordiazepoxide HCl (Chlordiazepoxide Hcl 25 Mg Capsule) 50 mg PO QID PRN PRN Reason: anxiety Last Admin: 01/07/24 04:59 Dose: 50 mg Documented By: YESSENIA Folic Acid (Folic Acid 1 Mg Tablet) 1 mg PO DAILY [facility] Last Admin: 01/07/24 09:39 Dose: 1 mg Documented By: ANDRÉS Hydroxyzine HCl (Hydroxyzine Hcl 25 Mg Tablet) 25 mg PO Q6H PRN PRN Reason: anxiety/restlessness Last Admin: 01/07/24 09:46 Dose: 25 mg Documented By: ANDRÉS Magnesium Hydroxide (Milk Of Magnesia 30 Ml Oral.Susp) 30 ml PO DAILY PRN PRN Reason: Constipation Melatonin (Melatonin 3 Mg Tablet) 6 mg PO BEDTIME PRN PRN Reason: Insomnia Last Admin: 01/06/24 03:06 Dose: 6 mg Documented By: INDRA-JOS Metoprolol Succinate (Metoprolol Succinate Er 50 Mg Tab.Er.24h) 50 mg PO DAILY [facility]; Protocol Last Admin: 01/07/24 09:38 Dose: 50 mg Documented By: ANDRÉS Nicotine Polacrilex (Nicotine Polacrilex 2 Mg Gum) 2 mg BUCCAL Q2H PRN PRN Reason: Nicotine Cravings Nifedipine (Nifedipine Er 60 Mg Tab.Er.24) 60 mg PO DAILY [facility]; Protocol Last Admin: 01/07/24 09:38 Dose: 60 mg Documented By: ANDRÉS Omeprazole (Omeprazole 20 Mg Capsule.Dr) 20 mg PO DAILY@0630 [facility] Last Admin: 01/07/24 04:59 Dose: 20 mg Documented By: YESSENIA Ondansetron HCl (Ondansetron Hcl 4 Mg/2 Ml Vial) 4 mg IVPUSH Q8H PRN PRN Reason: Nausea and Vomiting Pharmacy Consult (Consult Rx Etoh Phenob Im/Po) 1 each MISCELLANE ONCE PRN; Protocol PRN Reason: Consult order Phenobarbital (Phenobarbital 30 Mg Tablet) 30 mg PO BID [facility]; Protocol Stop: 01/08/24 21:01 Last Admin: 01/07/24 09:38 Dose: 30 mg Documented By: ANDRÉS Phenobarbital (Phenobarbital 30 Mg Tablet) 30 mg PO DAILY [facility]; Protocol Stop: 01/10/24 09:01 Sertraline HCl (Sertraline Hcl 100 Mg Tablet) 100 mg PO DAILY [facility] Last Admin: 01/07/24 09:38 Dose: 100 mg Documented By: ANDRÉS Sodium Chloride (0.9 % Sodium Chloride Flush 3 Ml Syringe) 3 ml IVFLUSH QSHIFT [facility] Last Admin: 01/07/24 09:39 Dose: 3 ml Documented By: ANDRÉS Thiamine HCl (Thiamine Hcl 100 Mg Tablet) 100 mg PO DAILY [facility] Last Admin: 01/07/24 09:38 Dose: 100 mg Documented By: ANDRÉS Labs 01/04/24 19:49 01/07/24 06:16 Labs: Laboratory Results - last 24 hr 01/07/24 06:16 Hold Purple Top SEE NOTE Anion Gap 16 Estim Creat Clear Calc 102.2 Estimated GFR > 60 Random Glucose 100 Calcium 9.0 Assessment and Plan (1) Alcohol withdrawal: Status: Acute (2) Gout: Status: Acute (3) Hypertension: Status: Acute (4) Alcoholism: Status: Acute (5) Depression with suicidal ideation: Status: Acute Plan 48-year-old gentleman with past medical history of hypertension, alcohol use disorder, gout, who recently relapsed on alcohol after being sober home for 3 months in [facility] , have been drinking heavily in last 1-2 weeks Presented to ED with depression and suicidal ideation patient cleared by care team and now being admitted to [facility] due to alcohol with high risk for seizures.. Alcohol use disorder/withdrawal with prior history of withdrawal seizure continue phenobarb protocol/as needed Librium Folic acid, thiamine, PPI for GI prophylaxis, seizure precautions Seen by Addiction Team , patient declined to go to rehab from here wants to follow-up on his own outpatient, Addiction Team provided outpatient resources. History of gout, no acute flare on allopurinol 300 mg daily Acute mild Hypernatremia sodium 146 push po fluids. Hypertension with elevated blood pressures, will resume home medications metoprolol XL 50 mg daily and nifedipine XL 60 mg , will hold Norvasc (? Why on 2 calcium channel blockers) Follow BP Wide-complent VT--normal K, supplement to bring to 4, check mag and correct as needed, echo to rule out alcoholic cardiomyopathy, cardiology eval Depression/suicidal ideation cleared by care team, resume Zoloft 100 mg daily. Full code Early ambulation In my clinical judgment patient need continued inpatient hospitalization for alcohol withdrawal requiring phenobarb protocol and close monitoring for withdrawal seizures, and close follow-up with Addiction Team Quality Stroke Does the patient have a stroke diagnosis?: No VTE Prior VTE?: No VTE Risk Level:: Medical - low VTE Device Contraindication: Treatment Not Indicated VTE Drug Contraindication: Treatment Not Indicated
[2024-01-07 10:43] LABS: Magnesium 1.9 mg/dL (1.6-2.6)
--- NOTE | 2024-01-07 11:32 | MHC.CM.PN ---
EMR reviewed and per MD rounds, pt is not medically cleared for discharge due to management of ETOH W/D, and pt found with arrhythmias. This CM met with pt to discuss his discharge plan anticipated tomorrow 01/07. Pt states he would like to go to a sober living house in [place] named the [facility]. Pt states he submitted an application and they are willing to accept him. This CM called [facility] and spoke with an employee there who states they received his application but they likely won't have an available bed until next week and that the pt can call back next week to check. Pt aware that once medically cleared he will likely need to go to a alf to stay until he can go to the sober house.
[2024-01-07] MEDS: Potassium Chloride ER 20 MEQ TAB.ER.PRT 40 MEQ PO (11:38)
[2024-01-07] MEDS: Melatonin 3 MG TABLET 6 MG PO (22:31)
[2024-01-08 03:21] VITALS: BP 120/72; PULSE 69; RESP 16; TEMP 36.3; O2SAT 96
[2024-01-08] MEDS: Omeprazole 20 MG CAPSULE.DR PO (06:10)
[2024-01-08 07:19] VITALS: BP 128/72; PULSE 68; RESP 18; TEMP 36.2; O2SAT 95
[2024-01-08 08:26] VITALS: BP 126/72
[2024-01-08] MEDS: PHENobarbitaL 30 MG TABLET PO (08:26)
[2024-01-08] MEDS: NIFEdipine ER 60 MG TAB.ER.24 PO (08:26)
[2024-01-08] MEDS: Acetaminophen 325 MG TABLET 650 MG PO (08:26)
[2024-01-08 08:27] VITALS: BP 126/72; PULSE 72
[2024-01-08] MEDS: Metoprolol Succinate ER 50 MG TAB.ER.24H PO (08:27)
[2024-01-08] MEDS: Thiamine HCL 100 MG TABLET PO (08:27)
[2024-01-08] MEDS: allopurinoL 300 MG TABLET PO (08:27)
[2024-01-08] MEDS: Folic Acid 1 MG TABLET PO (08:27)
[2024-01-08] MEDS: Benzonatate 100 MG CAPSULE PO (08:27)
[2024-01-08] MEDS: Sertraline HCL 100 MG TABLET PO (08:27)
[2024-01-08] MEDS: hydrOXYzine HCL 25 MG TABLET PO ×2 (08:27→13:02)
[2024-01-08] MEDS: 0.9 % Sodium Chloride Flush 3 ML SYRINGE IVFLUSH (08:28)
--- NOTE | 2024-01-08 09:58 | P.CONCA_ITS ---
History of Present Illness History of Present Illness Date of Service: 01/08/24 Chief complaint: Alcohol Withdrawal Narrative: This is a cardiology consultation regarding a question of ventricular tachycardia. There was suspicion for 22 beat run of NSVT on telemetry and hence we are asked to see him. Discussed with patient today. He states that he used to live in the [place], [place]. At that time, he was apparently told have palpitations and he seems that he underwent some workup possibly with a Holter but not clear. Also seems like he might have had an echocardiogram as well as he states that he was told to have a weak heart and congestive heart failure. However, no definitive followups. Currently, he is living somewhere in [address] in a sober home. Currently, he was admitted with alcohol withdrawal type issues. Per H&P, he relapsed couple of weeks ago and was released from the program. He continued drinking heavily and then he came to the ER with suicidal thoughts. Apparently told the nurse that he had a plan to slit his throat with a knife. Then subsequently admitted for further care. In this process, telemetry had shown a 22 beat run of tachycardia initially thought to be VT. Currently, he states he feels fine. Really does not have any cardiac symptoms. Some random chest pains at times in the past but nothing definitive like angina. He did use drugs like cocaine many years ago but nothing recently according to him. He does not recall any history of myocardial infarction or PCI. He denies any history of cardiac catheterization as well. Review of Systems 2 Review of Systems: Yes all other systems are reviewed and are negative Constitutional: Constitutional: Reports as per HPI and Reports no additional constitutional complaints Eyes: Eyes: Reports as per HPI and Denies no additional eye complaints ENT: Denies system reviewed and no additional complaints, except as documented and Reports as per HPI Cardiovascular: Cardiovascular: Reports as per HPI, Reports no additional cardiovascular complaints, Denies acrocyanosis, Denies cool extremities, Denies chest pain, Denies leg edema, Denies lightheadedness, Denies palpitations and Denies dyspnea Respiratory: Respiratory: Reports as per HPI, Denies no additional respiratory complaints and Denies dyspnea Gastrointestinal: Gastrointestinal: Reports as per HPI and Denies no additional gastrointestinal complaints Genitourinary: Genitourinary: Reports no additional male genitourinary complaints and Reports as per HPI Musculoskeletal: Musculoskeletal: Reports no additional musculoskeletal complaints and Reports as per HPI Integumentary/Breasts: Skin/Breast: Reports system reviewed and no additional complaints, except as docu Neurologic: Reports system reviewed and no additional complaints, except as documented and Reports as per HPI Psychiatric: Psychiatric: Reports no additional psychiatric complaints and Reports as per HPI Endocrine: Endocrine: Reports no additional endocrine complaints, Reports as per HPI and Denies palpitations Hematologic/Lymphatic: Hematologic/Lymphatic: Reports no additional hematologic/lymphatic complaints and Reports as per HPI Allergic/Immunologic: Allergic/Immunologic: Reports no additional allergic/immunologic complaints and Reports as per HPI [facility] Past Medical History Medical History (Updated 01/08/24 @ 10:03 by Kwadwo Daly MD) Depression with suicidal ideation Hypertension Alcoholism Family History Family History (Updated 01/08/24 @ 10:02 by Kwadwo Daly MD) Mother Cancer Social History Social History Household Members: None Housing: Other Housing Other:: hotel Do you presently have visiting nurse or other home services: No Alcohol intake: current Alcohol intake frequency: 3 or more drinks per day Alcohol type: hard liquor Comment: Pt refusing all alarms Patient Tobacco Use Status: Former Tobacco user service: No Meds Allergies Allergy/AdvReac Type Severity Reaction Status Date / Time No Known Allergies Allergy Verified 01/04/24 18:43 Active Medications: Current Medications Acetaminophen (Acetaminophen 325 Mg Tablet) 650 mg PO Q6H PRN PRN Reason: Pain, Mild (Pain Scale 1-3), fever or headache Last Admin: 01/08/24 08:26 Dose: 650 mg Allopurinol (Allopurinol 300 Mg Tablet) 300 mg PO DAILY [facility] Last Admin: 01/08/24 08:27 Dose: 300 mg Benzonatate (Benzonatate 100 Mg Capsule) 100 mg PO TID PRN PRN Reason: Cough Last Admin: 01/08/24 08:27 Dose: 100 mg Calcium Carbonate (Calcium Carbonate 750 Mg Tab.Chew) 750 mg PO Q4H PRN PRN Reason: Heartburn Chlordiazepoxide HCl (Chlordiazepoxide Hcl 25 Mg Capsule) 50 mg PO QID PRN PRN Reason: anxiety Last Admin: 01/07/24 18:16 Dose: 50 mg Folic Acid (Folic Acid 1 Mg Tablet) 1 mg PO DAILY [facility] Last Admin: 01/08/24 08:27 Dose: 1 mg Hydroxyzine HCl (Hydroxyzine Hcl 25 Mg Tablet) 25 mg PO Q6H PRN PRN Reason: anxiety/restlessness Last Admin: 01/08/24 08:27 Dose: 25 mg Magnesium Hydroxide (Milk Of Magnesia 30 Ml Oral.Susp) 30 ml PO DAILY PRN PRN Reason: Constipation Melatonin (Melatonin 3 Mg Tablet) 6 mg PO BEDTIME PRN PRN Reason: Insomnia Last Admin: 01/07/24 22:31 Dose: 6 mg Metoprolol Succinate (Metoprolol Succinate Er 50 Mg Tab.Er.24h) 50 mg PO DAILY [facility]; Protocol Last Admin: 01/08/24 08:27 Dose: 50 mg Nicotine Polacrilex (Nicotine Polacrilex 2 Mg Gum) 2 mg BUCCAL Q2H PRN PRN Reason: Nicotine Cravings Nifedipine (Nifedipine Er 60 Mg Tab.Er.24) 60 mg PO DAILY [facility]; Protocol Last Admin: 01/08/24 08:26 Dose: 60 mg Omeprazole (Omeprazole 20 Mg Capsule.Dr) 20 mg PO DAILY@0630 [facility] Last Admin: 01/08/24 06:10 Dose: 20 mg Ondansetron HCl (Ondansetron Hcl 4 Mg/2 Ml Vial) 4 mg IVPUSH Q8H PRN PRN Reason: Nausea and Vomiting Pharmacy Consult (Consult Rx Etoh Phenob Im/Po) 1 each MISCELLANE ONCE PRN; Protocol PRN Reason: Consult order Phenobarbital (Phenobarbital 30 Mg Tablet) 30 mg PO BID [facility]; Protocol Stop: 01/08/24 21:01 Last Admin: 01/08/24 08:26 Dose: 30 mg Phenobarbital (Phenobarbital 30 Mg Tablet) 30 mg PO DAILY [facility]; Protocol Stop: 01/10/24 09:01 Sertraline HCl (Sertraline Hcl 100 Mg Tablet) 100 mg PO DAILY [facility] Last Admin: 01/08/24 08:27 Dose: 100 mg Sodium Chloride (0.9 % Sodium Chloride Flush 3 Ml Syringe) [facility] Last Admin: 01/08/24 08:28 Dose: 3 ml Thiamine HCl (Thiamine Hcl 100 Mg Tablet) 100 mg PO DAILY [facility] Last Admin: 01/08/24 08:27 Dose: 100 mg Home Medications ?Medication ?Instructions ?Recorded ?Confirmed ?Last Taken ?Type allopurinol 300 mg tablet 300 mg PO DAILY 01/04/24 01/04/24 Unknown History amlodipine 5 mg tablet 5 mg PO DAILY 01/04/24 01/04/24 Unknown History folic acid 1 mg tablet 1 mg PO DAILY 01/04/24 01/04/24 Unknown History melatonin 5 mg tablet 1 mg PO DAILY 01/04/24 01/04/24 Unknown History metoprolol succinate 50 mg 50 mg PO DAILY 01/04/24 01/04/24 Unknown History tablet,extended release 24 hr nicotine (polacrilex) 2 mg gum 2 mg PO Q2H PRN nicotine cravings 01/04/24 01/04/24 Unknown History nifedipine 60 mg tablet,extended 60 mg PO DAILY 01/04/24 01/04/24 Unknown History release 24 hr sertraline 100 mg tablet 100 mg PO DAILY 01/04/24 01/04/24 Unknown History thiamine HCl (vitamin B1) 100 mg 100 mg PO DAILY 01/04/24 01/04/24 Unknown History tablet Physical Exam 2 Vital Signs: Vital Signs: Last Vital Signs Temp 97.1 F 01/08/24 07:19 Pulse 72 01/08/24 08:27 Resp 18 01/08/24 07:19 BP 126/72 01/08/24 08:27 Pulse Ox 95 01/08/24 07:19 O2 Del Method Room Air 01/08/24 07:19 BMI result Body Mass Index 29.4 Const: General: comfortable and no acute distress O rientation/consciousness: patient oriented x3 HEENT: Other: Unremarkable Head: Yes normal to inspection Neck: Neck: Yes normal visual inspection Chest: Chest palpation & inspection: normal inspection of the chest Resp: Auscultation: clear to auscultation bilaterally Cardio: Palpation: normal PMI Heart sounds: S1 normal heart sound present, S2 normal heart sound present, no gallops, no murmurs and no rubs GI: Palpation (GI): Soft to palpation Back/Spine/Pelvis: Other: unremarkable Skin: General skin exam: no rashes or lesions noted Neuro: General: patient oriented x3 Extrem: General: Yes normal to inspection Psych: Mental Status: mental status grossly normal Objective Labs and Meds 01/04/24 19:49 01/07/24 06:16 Lab results: Laboratory Results - last 24 hr 01/07/24 06:16 Magnesium 1.9 ECG Interpretation: EKG with sinus rhythm at 70/Min; leftward axis; no significant ST-T changes and otherwise unremarkable. Assessment and Plan (1) Tachycardia: Status: Acute (2) Cardiomyopathy: Status: Acute (3) Alcohol withdrawal: Status: Acute (4) Alcoholic intoxication: Status: Acute (5) Depression with suicidal ideation: Status: Acute Plan Reviewed the telemetry strip. There is 1 episode where there is 22 beat run of tachycardia. Difficult to say if it is ventricular or supraventricular. Nothing recurrent. Troponin has been requested and pending. In the echocardiogram, LVEF is diminished at about 40%. Basal inferior/inferoseptal segments appear akinetic. Otherwise unremarkable. Overall, remote history of substance abuse per patient; ongoing alcohol issues; cardiomyopathy on echocardiogram with WMA. Uncertain etiology. Could be related to prior cocaine related myocardial injury. Components of alcoholic cardiomyopathy. Coronary disease also possible but he does not have any clear anginal-type symptoms. Once medical issues are resolved, will need ischemia workup. We discussed about where he will get this done as he does not live here. We can call for an appointment if he is willing to come here. Otherwise, for medications low-dose aspirin. Continue beta-blockers. Await troponin. If that is abnormal we will reassess. Discussed with Dr. Grier. Procedures Date of Service Date of Service: 01/08/24
[2024-01-08 10:05] LABS: Troponin-I High Sensitivity < 2.7 ng/L (<3.5-35.0)
--- NOTE | 2024-01-08 10:16 | MHC.CM.PN ---
CM spoke with Patient at bedside, after ROUNDS, where Patient was deemed medically cleared for dc today. Upon entering Patient's room, Patient had in hand, a list of shelters, taken out of the [employer] Book that fellow CM provided to him yesterday. Patient stated that he has been calling shelters all morning with no bed availability for today. CM will assist and follow.
[2024-01-08 11:06] VITALS: BP 133/82; PULSE 75; RESP 18; TEMP 36.3; O2SAT 96
[2024-01-08] MEDS: Aspirin Enteric Coated 81 MG TABLET.DR PO (11:23)
[2024-01-08] MEDS: chlordiazePOXIDE HCl 25 MG CAPSULE 50 MG PO (11:26)
--- NOTE | 2024-01-08 12:03 | MHC.CM.PN ---
Attending MD will review Cardiology PN from today and then confirm with this CM if Patient is medically cleared for dc. CM awaits MD's decision and will continue to follow.
--- NOTE | 2024-01-08 12:35 | MHC.CM.PN ---
CM spoke with a Currency Machine Operator from [facility]([phone]) to determine if this program would be an option for dc for this Patient. Unfortunately, it is not a, housing opportunity environment at any time. CM will follow.
--- NOTE | 2024-01-08 12:45 | PM.DS ---
DS: Providers Provider Date of Service: 01/08/24 Date of admission: 01/05/24 17:21 Primary care physician: Unknown Physician Consults: 01/04/24 23:05 Consult to Care Team Stat Comment: Reason for consultation: Alcoholism, depression with suicidal thoughts 01/07/24 09:57 Consult to Cardiology Routine Consulting Provider: [facility] Reason for consultation: 22 beats of Vtach Has provider been notified: Yes DS: Diagnosis Discharge Diagnosis (1) Tachycardia: Status: Acute (2) Cardiomyopathy: Status: Acute (3) Alcohol withdrawal: Status: Acute (4) Alcoholic intoxication: Status: Acute (5) Depression with suicidal ideation: Status: Acute DS: Summary Hospital Course Hospital Course: Admission note HPI 48-year-old gentleman with past medical history significant for hypertension, gout, history of alcohol use disorder, was residing in a sober home in [facility] for last 3 months but 2 weeks ago he relapsed and was released from the program he had an opportunity to return back in 3 days but was unable to abstain from alcohol, and continued drinking heavily, few pint of fireball daily, he rented a hotel for past 3 days 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 [employer], on 01/02 , he felt depressed because of recent alcohol relapse and heavy alcohol use therefore he came to [facility] with suicidal thoughts, he apparently told the nurse that he had a plan to slit his throat with a knife patient was kept in [facility] under section 12, until he was seen by care team, today patient was seen by crisis and felt patient is no longer suicidal, and cleared him, patient was started on phenobarb protocol for alcohol withdrawal on 01/03, today he noted to have a CIWA of 13, therefore patient is being admitted to [facility] for alcohol withdrawal with history of alcohol withdrawal seizures. Patient is complaining of nausea and headache, denies vomiting, abdominal pain, no tachycardia, no tremors, no fogginess, he has been started on Librium as needed by ED provider. Hospital course - Alcohol use disorder/withdrawal with prior history of withdrawal seizure treated with phenobarb protocol with as needed Librium with good response as his withdrawal symptoms resolved and he was able to tolerate diet and activities. started on Folic acid, thiamine, PPI for GI prophylaxis along with seizure precautions. Seen by Addiction Team , patient declined to go to rehab from here wants to follow-up on his own outpatient, Addiction Team provided outpatient resources. - Acute mild Hypernatremia sodium 146 on presentation. improved to normal level with IV fluids. - Hypertension with elevated blood pressures, resumed home medications metoprolol XL 50 mg daily and nifedipine XL 60 mg while Amlodipine was discontinued with fair response. asked to monitor BP as outpatient. will be seen by cardiology as outpatient. - Had an episode of asymptomatic Wide-complent VT for 1 time only. kept on Tele metry. echo showed EF ofr 40% with WMA. with history of drug related/ alcoholic cardiomyopathy on Metoprolol XL as he was evaluated by cardiology who recommended starting Aspirin and outpatient follow up for ischemic work up. - He has history of Depression and presented with suicidal ideation on admission cleared by care team at that point. Denies any suicidal ideation or intention at this time. resume Zoloft 100 mg daily. Discharge plan We advise you complete abstinence from Alcohol Discontinue Amlodipine, Continue with Nifedipine for blood pressure control Start Baby aspirin daily Continue Metoprolol as prescribed To follow with dr Daly from Cardiology as outpatient for further work up of your weakened heart Time Attestation Discharge Coordination Time (in mins): 38 Quality: Safe Use of Opioids Does Pt have an Active Cancer Diagnosis on the Problem List?: No Quality: Stroke Does the patient have a stroke diagnosis?: No Physical Exam Vital Signs: Vital Signs: Last Vital Signs Temp 97.4 F 01/08/24 11:06 Pulse 75 01/08/24 11:06 Resp 18 01/08/24 11:06 BP 133/82 01/08/24 11:06 Pulse Ox 96 01/08/24 11:06 O2 Del Method Room Air 01/08/24 11:06 BMI result Body Mass Index 29.4 Const: Other: Constitutional : Awake, interactive, not in distress Neck : Normal inspection, Supple Cardiovascular : RRR, no JVP, no lower extremity edema Respiratory : good bilateral air entry, no crackles, wheezes or rhonchi Gastrointestinal: soft, lax, Normal bowel sounds, Non tender Skin : Warm, Dry Neurological : Alert & oriented x3, No focal deficit DS: Data Data Completed and Pending Labs on day of discharge: Laboratory Results - last 24 hr 01/08/24 09:39 Troponin I High Sens < 2.7 Discharge Plan Discharge Anticipated Discharge Date/Time: 01/08/24 12:41 Patient Disposition: Home, Self-Care Discharge Diagnosis: Alcohol abuse and withdrawal cardiomyopathy Referrals: Physician,Unknown J [Primary Care Provider] - 1 Week Discharge Medications: New aspirin 81 mg Tablet,Delayed Release (Dr/Ec) 81 mg PO DAILY Qty: 90 0RF Continued nicotine (polacrilex) 2 mg gum 2 mg PO Q2H PRN (Reason: nicotine cravings) sertraline 100 mg tablet 100 mg PO DAILY thiamine HCl (vitamin B1) 100 mg tablet 100 mg PO DAILY nifedipine 60 mg tablet extended release 24hr 60 mg PO DAILY folic acid 1 mg tablet 1 mg PO DAILY allopurinol 300 mg tablet 300 mg PO DAILY melatonin 5 mg tablet 1 mg PO DAILY metoprolol succinate 50 mg tablet extended release 24 hr 50 mg PO DAILY Qty: 90 0RF Discontinued amlodipine 5 mg tablet 5 mg PO DAILY Discharge Orders: Discharge Order (Routine); Ordered 01/08/24 Ordered By: Vilma Grier Diet: Low salt diet Activity on Discharge: As tolerated Stand Alone Forms: Patient Portal Discharge page Print Language: Monegasque Care Plan Goals: We advise you complete abstinence from Alcohol Discontinue Amlodipine, Continue with Nifedipine for blood pressure control Start Baby aspirin daily Continue Metoprolol as prescribed To follow with dr Daly from Cardiology as outpatient for further work up of your weakened heart Health Concerns: Read below Plan of Treatment: Read below Assessment: Read below
--- NOTE | 2024-01-08 12:56 | MHC.CM.PN ---
CM met with Patient at bedside to inform him that the dc order is in; Patient is agreeable to be dc'd. Patient stated that his phone is presently charging and he is not positive where he will be going but he states, I'll be ok. CM offered bus tickets and/or a Lyft if there is a specific, local destination he would like to get to. MD & RN are aware.Patient has been medically cleared for dc ,self care.
--- NOTE | 2024-01-08 13:01 | MHC.CM.PN ---
Per MD, Patient's prescriptions have been sent downstairs to [facility] and will be available to Patient for pick-up on his way out from the hospital.
--- NOTE | 2024-01-08 13:23 | MHC.CM.PN ---
Addendum entered by Rachel Miranda 01/08/24 14:22: Last IMM addressed on 01/06/2024. Original Note: Patient is requesting a Lyft to [facility] @ [address], [place]; JACQUES has received permission to set up the Lyft.Lyft will arrive at 3PM;RN is aware.
== END 2024-01-08 14:36 | disposition home or self-care (01) | DRG 897 ==
LOC: HO.ED 01-05 17:01 → HO.EDOVER 01-05 17:33 → HO.IMC 01-05 18:42
PROVIDERS: Internal Medicine; Admitting Provider Hospitalist; Emergency Provider Emergency Medicine; Visit Provider Student in an Organized Health Care Education/Training Program
DX: F10.239 Alcohol dependence with withdrawal, unspecified (principal); R45.851 Suicidal ideations; E87.0 Hyperosmolality and hypernatremia; I47.20 Ventricular tachycardia, unspecified; I42.6 Alcoholic cardiomyopathy; F10.229 Alcohol dependence with intoxication, unspecified; Y90.8 Blood alcohol level of 240 mg/100 ml or more; I10 Essential (primary) hypertension; M10.9 Gout, unspecified; Z87.891 Personal history of nicotine dependence; Z79.899 Other long term (current) drug therapy
CPT/HCPCS: 36415; 80048; 80076; 80307; 81001; 83735; 84484; 85025; 85610; 93005; 93306; 99285; J2560; Q9957; S9485

== ENCOUNTER → 2024-01-04 18:51 | Outpatient (BNV) | payer MEDICARE, SELFPAY | PROVIDERS: Emergency Provider Emergency Medicine; Visit Provider Internal Medicine | DX: R94.31 Abnormal electrocardiogram [ECG] [EKG] (principal) | CPT/HCPCS: 93010 ==

== ENCOUNTER 2024-01-05 17:21 | Outpatient (BNV) | payer MEDICARE, SELFPAY | END 2024-01-07 10:11 | PROVIDERS: Admitting Provider Hospitalist; Emergency Provider Emergency Medicine; Visit Provider Internal Medicine | DX: R94.31 Abnormal electrocardiogram [ECG] [EKG] (principal) | CPT/HCPCS: 93010; 93306 ==

== ENCOUNTER → 2024-01-05 17:21 | Outpatient (BNV) | payer MEDICARE, SELFPAY | PROVIDERS: Admitting Provider Hospitalist; Emergency Provider Emergency Medicine; Visit Provider Internal Medicine | DX: R00.0 Tachycardia, unspecified (principal); I42.9 Cardiomyopathy, unspecified; F10.939 Alcohol use, unspecified with withdrawal, unspecified; F10.929 Alcohol use, unspecified with intoxication, unspecified; F32.A Depression, unspecified; R45.851 Suicidal ideations | CPT/HCPCS: 99223 ==

== ENCOUNTER → 2024-01-05 17:21 | Outpatient (BNV) | payer MEDICARE, SELFPAY | PROVIDERS: Admitting Provider Hospitalist; Emergency Provider Emergency Medicine; Visit Provider Hospitalist | DX: R00.0 Tachycardia, unspecified (principal); I42.9 Cardiomyopathy, unspecified; F10.939 Alcohol use, unspecified with withdrawal, unspecified; F10.929 Alcohol use, unspecified with intoxication, unspecified; F32.A Depression, unspecified; R45.851 Suicidal ideations | CPT/HCPCS: 99223; 99232; 99239 ==